=== PATIENT | male | born 1965 | race Caucasian/White ===

== ENCOUNTER 2022-03-23 14:11 | Emergency (ER) | payer SELFPAY ==
[~2022-03-23] VITALS: Wt 81.6 kg
[2022-03-23] MEDS ORDERED: PERCOCET 5-3251 EACH PO (20:04)
== END 2022-03-23 20:19 | disposition home or self-care (01) ==
LOC: ED 14:11
DX: S92.902A Unspecified fracture of left foot, initial encounter for closed fracture (principal); S82.832A Other fracture of upper and lower end of left fibula, initial encounter for closed fracture; V89.2XXA Person injured in unspecified motor-vehicle accident, traffic, initial encounter; Y93.89 Activity, other specified; Y92.89 Other specified places as the place of occurrence of the external cause; Y99.8 Other external cause status

== ENCOUNTER → 2022-06-30 | Day surgery (SDC) | payer MEDICAID ==
[2022-06-28 13:52] VITALS: BP 143/81
[~2022-06-30] VITALS: Ht 152.4 cm; Wt 83.9 kg
[~2022-06-30] MED LIST: DOXYCYCLINE HY100 M3 PO; Motrin,Rufen800 MG PO; PERCOCET 5-3251 EACH PO; TRAMADOL HCL50 MG PO; ULTRAM50 MG PO; XARELTO10 MG PO
[2022-06-30 07:37] VITALS: BP 117/63
[2022-06-30 09:31] VITALS: BP 116/70
[2022-06-30 09:46] VITALS: BP 123/80
[2022-06-30 10:01] VITALS: BP 130/85
== END | disposition home or self-care (01) ==
LOC: SDC 06-28 13:15
PROVIDERS: ATTEND Podiatrist
DX: T84.84XA Pain due to internal orthopedic prosthetic devices, implants and grafts, initial encounter (principal); F17.210 Nicotine dependence, cigarettes, uncomplicated; J44.9 Chronic obstructive pulmonary disease, unspecified; Y82.8 Other medical devices associated with adverse incidents

== ENCOUNTER → 2025-03-07 | Outpatient (CLI) | payer OTHER ==
[2025-03-07 12:12] LABS: BASO % 0.5 % (0.0-1.0); EOS # 0.2 10*3/uL (0.0-0.4); EOS % 2.5 % (1.0-4.0); HEMATOCRIT 44.2 % (42.0-52.0); MEAN CELL VOLUME 85.7 fl (80.0-94.0); MEAN CORPUSCULAR HGB 29.1 pg (27.0-31.0); MEAN CORPUSCULAR HGB CONC 33.9 g/dl (33.0-37.0); MEAN PLATELET VOLUME 9.2 fl (9.6-12.3); MONO # 0.6 10*3/uL (0.1-1.0); MONO % 9.3 % (3.0-9.0); NEUT # 2.9 10*3/uL (2.3-7.9); NEUT % 45.2 % (47.0-73.0); PLATELET COUNT AUTOMATED 272 10*3/uL (130-400); RED BLOOD COUNT 5.16 10*6/uL (4.50-5.90); RED CELL DISTRI WIDTH 12.9 % (0-14.5); WHITE BLOOD COUNT 6.4 10*3/uL (4.8-10.8)
[2025-03-07 12:16] LABS: BILIRUBIN Negative (Negative); BLOOD Negative (Negative); CLARITY Clear (Clear); COLOR Yellow (Yellow); GLUCOSE Negative (Negative); KETONE Negative (Negative); LEUKO ESTERASE Negative (Negative); NITRITE Negative (Negative); UROBILINOGEN 0.2 E.U./dl (0.0-1.0)
[2025-03-07 12:33] LABS: ALKALINE PHOSPHATASE 73 U/L (46-116); BUN 9 mg/dl (9-23); CHLORIDE 106 mmol/L (98-107); POTASSIUM 3.7 mmol/L (3.4-5.1); SGPT/ALT 31 U/L (5-49)
[2025-03-07 13:01] LABS: EPITHELIAL CELLS 0-2
[2025-03-08 13:07] LABS: FATS, NEUTRAL Normal (.); FATS, TOTAL Normal (.)
[2025-03-08 16:08] LABS: t-TRANSGLUTAMINASE (tTG) IGA <2 U/mL (0-3)
== END | disposition home or self-care (01) ==
LOC: LAB 11:46
PROVIDERS: Student in an Organized Health Care Education/Training Program; ATTEND Family Medicine
DX: R19.7 Diarrhea, unspecified (principal); R39.11 Hesitancy of micturition

== ENCOUNTER → 2025-03-25 | Day surgery (SDC) | payer OTHER ==
[~2025-03-25] VITALS: Ht 180.3 cm; Wt 93.9 kg
[~2025-03-25] MED LIST changes: +Lidocaine Hydrochloride 5 ML VIAL IV ONE; +PROPOFOL 200 MG/20 ML VIAL IV ONE; +SODIUM CHLORIDE 0.9% 1,000 ML IV ONE
[2025-03-25 09:27] VITALS: BP 110/68
[2025-03-25 10:20] VITALS: BP 104/63
[2025-03-25 10:35] VITALS: BP 122/67
[2025-03-25 10:50] VITALS: BP 117/73
== END | disposition home or self-care (01) ==
LOC: SDC 03-22 14:00
PROVIDERS: ATTEND Surgery
DX: R19.7 Diarrhea, unspecified (principal); D12.8 Benign neoplasm of rectum; K57.30 Diverticulosis of large intestine without perforation or abscess without bleeding; F17.210 Nicotine dependence, cigarettes, uncomplicated; Z79.899 Other long term (current) drug therapy

== ENCOUNTER → 2025-04-15 | Day surgery (SDC) | payer OTHER ==
[~2025-04-15] VITALS: Ht 180.3 cm; Wt 93.9 kg
[~2025-04-15] MED LIST changes: +LIDOCAINE HCL/EPINEPHRINE 50 ML VIAL ONE; +Lidocaine Hydrochloride 2% 5 ML SDV IM ONE; -Lidocaine Hydrochloride 5 ML VIAL IV ONE; +Midazolam Hydrochloride 2 MG/2 ML VIAL IV ONE; +SODIUM CHLORIDE 0.9% 1,000 ML IV SCH; +ceFAZolin sodium/sodium chlor 20 ML IV ONE
[2025-04-15 07:49] VITALS: BP 124/66
[2025-04-15 09:00] VITALS: BP 105/53
[2025-04-15 09:15] VITALS: BP 99/55
[2025-04-15 09:30] VITALS: BP 95/56
== END | disposition home or self-care (01) ==
LOC: SDC 04-12 10:15
PROVIDERS: ATTEND Surgery
DX: L73.2 Hidradenitis suppurativa (principal); F12.90 Cannabis use, unspecified, uncomplicated; F17.200 Nicotine dependence, unspecified, uncomplicated; Z79.899 Other long term (current) drug therapy